=== PATIENT | male | born 1950 | race Hispanic/Latino ===

== ENCOUNTER → 2016-03-08 | Outpatient (CLI) | payer OTHER ==
--- NOTE | 2016-03-09 08:38 | CT ---
EXAM DESCRIPTION: CT LOWER EXTREMITY WITHOUT IV CONTRAST CLINICAL HISTORY: 65 y/o M, HEMATOMA RT LEG. 589.91 COMPARISON: None TECHNIQUE: Thin slice axial imaging of the right tibia and fibula. The data was reformatted for interpretation. FINDINGS: There is extensive subcutaneous edema seen within the superficial soft tissues of the right lower extremity. There is a lenticular fluid collection measuring approximately 5.5 cm transverse by 1.8 cm AP x 7 cm craniocaudal. This is seen within the anterior and medial soft tissues of the right lower extremity. This fluid is dense compatible with patient's personal history of a hematoma. Osseous structures demonstrate no lytic or blastic lesion. No anterior tibial cortical thickening suggestive of a fracture. IMPRESSION: There is a dense fluid collection seen within the anteromedial soft tissues of the right lower extremity compatible with a hematoma. Extensive vascular calcifications noted. Electronically signed by: Mir Rick MD 03/09/2016 08:36
== END ==
LOC: LAB.O 15:19
PROVIDERS: ATTEND Surgery
DX: S80.11XA Contusion of right lower leg, initial encounter (principal); I70.201 Unspecified atherosclerosis of native arteries of extremities, right leg